=== PATIENT | female | born 1950 | race Caucasian/White ===

== ENCOUNTER 2018-04-13 05:46 | Day surgery (SDC) | payer MEDICARE, OTHER ==
[2018-04-13] MEDS ORDERED: Ketamine HCl 50 MG/ML IV ONE (05:47)
[2018-04-13] MEDS ORDERED: DIPRIVAN 200 MG/20 ML IV ONE (05:47)
[2018-04-13] MEDS ORDERED: Lactated Ringers 1,000 ML IV ONE (05:58)
[2018-04-13] MEDS ORDERED: Lactated Ringers 1,000 ML IV SCH (06:00)
--- NOTE | 2018-04-13 08:13 | OP ---
SURGERY DATE/TIME: 04/13/2018 0725 PREOPERATIVE DIAGNOSIS: Screening exam. POSTOPERATIVE DIAGNOSIS: Large sessile polyp in the ascending colon and moderate sigmoid diverticulosis. PROCEDURE: Colonoscopy with polypectomy. SURGEON: Dr. De Los Santos. ANESTHESIA: MAC. Medications given by anesthesia department. HISTORY: The patient is a 67 year-old white female presenting now for her first screening colonoscopy. The patient was appraised of the risks of the procedure including the risk of perforation, phlebitis, untoward reaction to medication, bleeding and missed lesions. The patient verbalized her understanding and desired to have the procedure performed. DESCRIPTION OF PROCEDURE: The patient was given the medications by the anesthesia department. She had continuous pulse oximetry, ECG monitoring, intermittent blood pressure monitoring and tidal CO2 monitoring during the examination. She was placed in the left lateral decubitus position. A digital rectal examination was performed and revealed normal anal sphincter tone and no masses. Hemorrhoids were present. The flexible Olympus pediatric colonoscope was used to intubate the rectum. A view of the colon was developed sequentially to the cecum where there was noted to be a large sessile polyp in the ascending colon this was removed using multiple passes of hot polypectomy snare and hot biopsy forceps to completely destroy the lesion. Upon insertion and withdrawal was also noted to be moderate sigmoid diverticulosis. The scope was removed from the patient who tolerated the procedure well and was sent back to OP recovery in good condition. The prep was noted to be fair.
[2018-04-13 10:32] VITALS: O2SAT 99
[2018-04-13 10:43] VITALS: BP 151/86; PULSE 61
== END 2018-04-13 09:10 | disposition home or self-care (01) ==
LOC: SDC 05:46
PROVIDERS: ATTEND Family Medicine
DX: K63.5 Polyp of colon (principal); Z12.11 Encounter for screening for malignant neoplasm of colon; K57.30 Diverticulosis of large intestine without perforation or abscess without bleeding
CPT/HCPCS: 88305; J2704

== ENCOUNTER 2018-11-19 05:53 | Day surgery (SDC) | payer MEDICARE, OTHER ==
[2018-11-19] MEDS ORDERED: DIPRIVAN 200 MG/20 ML IV ONE (05:54)
[2018-11-19] MEDS ORDERED: Lactated Ringers 1,000 ML IV SCH (06:30)
[2018-11-19 08:31] VITALS: O2SAT 96
[2018-11-19 08:52] VITALS: BP 121/58; PULSE 58
--- NOTE | 2018-11-19 13:13 | OP ---
SURGERY DATE/TIME: 11/19/2018 0730 PREOPERATIVE DIAGNOSIS: History of large sessile polyp in the ascending colon. POSTOPERATIVE DIAGNOSES: 1) Polyp in the cecum. 2) Moderate to severe sigmoid diverticulosis. PROCEDURE: Colonoscopy with a combination of hot and cold biopsy technique to destroy lesion in the cecum. SURGEON: Dr. De Los Santos. ANESTHESIA: MAC. Medications given by anesthesia department. HISTORY: The patient is a 68 year-old white female presents now for repeat evaluation. She previously had colonoscopy approximately six months ago with a large sessile lesion in the ascending colon. This was destroyed using multiple passes of hot biopsy forceps previously. The patient was felt the need to have re-evaluation at this time due to high risk of colon cancer. The patient was reappraised of the risks of the procedure including the risk of perforation, phlebitis, untoward reaction to medication, bleeding and missed lesions. The patient verbalized her understanding and desired to have the procedure performed. DESCRIPTION OF PROCEDURE: The patient was given the medications by the anesthesia department. She had continuous pulse oximetry, ECG monitoring, intermittent blood pressure monitoring and tidal CO2 monitoring during the examination. She was placed in the left lateral decubitus position. A digital rectal examination was performed and revealed external hemorrhoids, normal anal sphincter tone and no masses. The flexible Olympus pediatric colonoscope was used to intubate the rectum. A view of the colon was developed sequentially to the cecum. It was noted the colon to be quite tortuous and moderate to severe sigmoid diverticulosis was present. Upon insertion and withdrawal was noted a polyp in the cecum this was destroyed using passes of cold and then hot biopsy forceps to destroy the lesion. We observed the area of the ascending colon carefully with no evidence of residual polyp noted in this area. The scope was removed from the patient who tolerated the procedure well and was sent back to OP recovery in good condition.
== END 2018-11-19 08:50 | disposition home or self-care (01) ==
LOC: SDC 05:53
PROVIDERS: ATTEND Family Medicine
DX: D12.0 Benign neoplasm of cecum (principal); K57.32 Diverticulitis of large intestine without perforation or abscess without bleeding; Z86.010 Personal history of colon polyps; I10 Essential (primary) hypertension
CPT/HCPCS: 88305; J2704